=== PATIENT | female | born 1960 | race Caucasian/White ===

== ENCOUNTER 2020-08-20 10:12 | Emergency (ER) | payer OTHER ==
[2020-08-20 11:33] LABS: ALBUMIN 2.7 g/dL (3.4-5.0); BILIRUBIN - TOTAL 0.2 mg/dL (0.2-1.0); BUN/CREAT RATIO (CALC) 11.9 RATIO; CREATININE 0.67 mg/dL (0.51-0.95); GLOBULIN (CALCULATION) 4.9 g/dL; POTASSIUM 3.4 mmol/L (3.5-5.1); TOTAL PROTEIN 7.6 g/dL (6.4-8.2)
[2020-08-20 11:43] LABS: BASOPHIL 0.3 % (0-2); EOSINOPHIL 0.3 % (0-5); HCT 37.5 % (37.0-47.0); LYMPHOCYTE 19.6 % (15-48); MCH 30.5 pg (25.0-31.0); MCV 95.4 fL (78.0-100.0); MONOCYTE 4.5 % (0-12); MPV 9.8 fL (6.0-9.5); NEUTROPHIL 74.4 % (41-80); NRBC 0; PLT 245 K/uL (150-400); RBC 3.93 M/uL (4.20-5.40); RDW 13.1 % (11.5-14.0); WBC 3.5 K/uL (4.0-10.5)
[2020-08-20 12:32] LABS: BILIRUBIN NEGATIVE (NEGATIVE); BLOOD NEGATIVE Ery/uL (NEGATIVE); CLARITY CLEAR (CLEAR); COLOR YELLOW (YELLOW); GLUCOSE (U) NORMAL (NORMAL); LEUKOCYTES NEGATIVE Leu/uL (NEGATIVE); NITRITE NEGATIVE (NEGATIVE); PROTEIN NEGATIVE (NEGATIVE); UROBILINOGEN 0.2 mg/dL (0.2-1.0)
[2020-10-13] MEDS ORDERED: ONDANSETRON ODT8 MG PO (13:52)
[2020-10-13] MEDS ORDERED: OLMESARTAN MEDO20 MG PO (13:53)
[2020-10-13] MEDS ORDERED: MONTELUKAST SOD10 MG PO (13:53)
[2020-10-13] MEDS ORDERED: ASPIRIN EC81 MG PO (13:54)
[2020-10-13] MEDS ORDERED: FERROUS GLUCON324 M1 PO (13:54)
[2020-10-13] MEDS ORDERED: FOLIC ACID1 M1 PO (13:54)
[2020-10-13] MEDS ORDERED: LASIX20 MG PO (13:54)
[2020-10-13] MEDS ORDERED: DILTIAZEM 24HR240 M1 PO (13:55)
[2020-10-13] MEDS ORDERED: POTASSIUM CHLO20 ME2 PO (13:55)
[2020-10-13] MEDS ORDERED: LEXAPRO20 MG PO (13:55)
[2020-10-13] MEDS ORDERED: ALPRAZOLAM 0.50.5 MG PO (13:56)
[2020-10-13] MEDS ORDERED: SPIRIVA18 MCG INH (13:56)
[2020-10-13] MEDS ORDERED: LIDOCAINE 5% P1 EACH TOP (13:57)
[2020-10-13] MEDS ORDERED: ADVAIR 100-501 EACH INH (13:57)
== END 2020-08-20 18:25 | disposition home or self-care (01) ==
LOC: FER 10:12
PROVIDERS: Emergency Medicine
DX: U07.1 COVID-19 (principal); R11.2 Nausea with vomiting, unspecified; I10 Essential (primary) hypertension; J44.9 Chronic obstructive pulmonary disease, unspecified; Z99.81 Dependence on supplemental oxygen; Z79.899 Other long term (current) drug therapy
CPT/HCPCS: 36415; 71045; 71260; 80053; 81003; 85025; 93005; J2060; J2405; J7030; J7050; M0239; Q9967; U0002

== ENCOUNTER → 2020-10-17 | Day surgery (SDC) | payer OTHER ==
[~2020-10-17] VITALS: Ht 152.4 cm; Wt 99.8 kg
[~2020-10-17] MED LIST: ADVAIR 100-501 EACH INH; ALPRAZOLAM 0.50.5 MG PO; ASPIRIN EC81 MG PO; DILTIAZEM 24HR240 M1 PO; FERROUS GLUCON324 M1 PO; FOLIC ACID1 M1 PO; LASIX20 MG PO; LEXAPRO20 MG PO; LIDOCAINE 5% P1 EACH TOP; MONTELUKAST SOD10 MG PO; OLMESARTAN MEDO20 MG PO; ONDANSETRON ODT8 MG PO; POTASSIUM CHLO20 ME2 PO; SPIRIVA18 MCG INH
[2020-10-17 08:30] LABS: HCT 35.4 % (37.0-47.0); HGB 11.5 g/dl (12.5-16.0); MCH 31.1 pg (25.0-31.0); MCHC 32.5 g/dL (32.0-36.0); MCV 95.7 fL (78.0-100.0); MPV 9.6 fL (6.0-9.5); RBC 3.7 M/uL (4.20-5.40); RDW 14.6 % (11.5-14.0); WBC 7.4 K/uL (4.0-10.5)
[2020-10-17 08:42] LABS: ALBUMIN 2.5 g/dL (3.4-5.0); BILIRUBIN - TOTAL 0.3 mg/dL (0.2-1.0); BUN/CREAT RATIO (CALC) 9.3 RATIO; CREATININE 0.75 mg/dL (0.51-0.95); GLOBULIN (CALCULATION) 4.1 g/dL; POTASSIUM 3.4 mmol/L (3.5-5.1); TOTAL PROTEIN 6.6 g/dL (6.4-8.2)
== END | disposition home or self-care (01) ==
LOC: FAS 07:36
PROVIDERS: Surgery
DX: K31.9 Disease of stomach and duodenum, unspecified (principal); K21.00 Gastro-esophageal reflux disease with esophagitis, without bleeding; F41.9 Anxiety disorder, unspecified; J45.909 Unspecified asthma, uncomplicated; I10 Essential (primary) hypertension; D50.9 Iron deficiency anemia, unspecified; M19.90 Unspecified osteoarthritis, unspecified site; Z80.1 Family history of malignant neoplasm of trachea, bronchus and lung; Z80.3 Family history of malignant neoplasm of breast; Z87.891 Personal history of nicotine dependence
CPT/HCPCS: 36415; 76705; 80053; 82962; 87070; 87077; 87186; J2704; J7120